=== PATIENT | female | born 1995 | race Hispanic/Latino ===

== ENCOUNTER 2024-11-27 02:10 | Inpatient (IN) | payer MEDICAID, SELFPAY ==
[2024-11-27] VITALS (51 sets, daily range): BP systolic 100–159; BP diastolic 61–140; PULSE 71–91; RESP 16–18; TEMP 36.4–36.9; O2SAT 96–99; BMI 33.5
--- OUTSIDE RECORDS SUMMARY | 2024-11-27 02:37 | XMS_ITS | Clinical Summary ---
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 Phone Unavailable Primary Care Provider Unavailabl e Social History Tobacco Use Types Packs/Day Years Used Date Smoking Tobacco: Never Assessed Intimate Partner Violence Answer Date R ecorded Feels physically and emotionally safe Not on abdulaziz e 05/01/2024 Fear of partner Not on file 05/01/2024 Housing Stability Answer Date Recorded Housing situation Not on file 05/01/2024 Worried about losing housing Not on file 05/2024 Comments Unknown Sex and Gender Information Value Date Recorded Sex Assigned at Not on file Legal Sex Female 1:59 PM EST Gender Identity Not on file Sexual Orientation Not on file Plan of Treatment Health Maintenance Due Date Last Done Comments HIV Screening 1996 MMR Vaccines (1 of 1 - Stand phuong series) 1997 Varicella Vaccines (1 of 2 - 13+ 2-dose series) 2009 Hepatitis B Screening 2014 Hepatitis C Screening 2014 Well Adult Exam (Age 18+ Linsey ual Physical) 2014 Hepatitis B Vaccines (1 of 3 - 19+ 3-dose series) 11/06/2015 DTaP/Tdap/Td Vaccines (2 - T d or Tdap) 12/17/2015 11/19/2015 Pap Smear 2017 COVID-19 Vaccine ( - 2023-2 5 season) 2024 Influenza Vaccine (Season Ended) 2025 Zoster Vaccines (1 of 2) 2046 HIB Vaccines Aged Out No longer eligi ble based on patient's age to complete this topic HPV Vaccines Aged Out No longer eligi ble based on patient's age to complete this topic Hepatitis A Vaccines Aged Out No long er eligible based on patient's age to complete this topic IPV Vaccines Aged Out No longer eligi ble based on patient's age to complete this topic Meningococcal B Vaccine Aged Out No l onger eligible based on patient's age to complete this topic Meningococcal Vaccine Aged Out No dominick alexandro eligible based on patient's age to complete this topic Pneumococcal Vaccine: 0-49 Years Aged Out No longer eligible based on patient's age to complete this topic Rotavirus Vaccines Aged Out No longer eligible based on patient's age to complete this topic
--- OUTSIDE RECORDS SUMMARY | 2024-11-27 02:37 | XMS_ITS | Continuity of Care Document ---
Author Organization [facility] Address [address] [place] [address] Phone Care Team Providers Care Behavior Clinician Name Role Phone Liv Jimenez Unavailable Unava ilable Allergies, Adverse Reactions, Alerts Substance Reaction Status Criticality No Known Allergies Active No Inform ation Medications Medication Instructions Dosage Effective Dates (start - stop) Status Comments Lantus Solostar U-100 Insulin 100 unit/mL (3 mL) subcutaneous pen inject by 29 units by subcutaneous route at bedtime nightly - Active Pen Needle 30 gauge x 5/16 use to inject insulin as prescribed - Active metformin 1,000 mg tablet take 1 tablet by oral route nightly - Active Lancets,Ultra Thin use to check blood sugar four times daily as instructed - Active ok to sub fo r any lancets covered by insurance Alcohol Prep Pads use to check blood sugar four times daily as instructed - Active OneTouch Verio Flex Meter use to check blood sugar four times a day as instructed - Active may sub any equivalent covered by insurance OneTouch Verio test strips use to check blood sugar four times a day as instructed - Active may substitute equivalent test strips for insurance coverage 28 mg iron-800 mcg tablet take 1 tablet by oral route every day - Active directions in [place] Procedures Procedure Date OFFICE OUTPT EST 25 MIN OB US >/= 14 Weeks, Single Fetus 2024 BIOPHYSICAL PROFILE; WITHOUT NON-S TRESS TESTING Alcohol and/or drug screening OFFICE OUTPT EST 25 MIN OFFICE OUTPT EST 25 MIN Alcohol and/or drug screening 5 OFFICE/OUTPATIENT VISIT, EST OFFICE/OUTPATIENT VISIT, EST OFFICE OUTPT EST 25 MIN Immun admin-adult or WO counseling - fir st vaccine/toxoid TDAP VACCINE 7 YR + IM OFFICE O/P EST 5 MIN Voided Encounter Voided Encounter Alcohol and/or drug screening 5 OFFICE/OUTPATIENT VISIT, EST Urinalysis, Auto, w/o Scope Alcohol and/or drug screening 5 OFFICE/OUTPATIENT VISIT, EST Alcohol and/or drug screening 5 OFFICE/OUTPATIENT VISIT, EST Alcohol and/or drug screening 4 Immun admin-adult or WO counseling-each add vaccine/toxoid aft 21992 INFLUENZA VACCINE IIV3 ADMIN SARSCOV2 VACC 1 DOSE SARSCOV2 VAC 30MCG TRSSUC IM HEMOGLOBIN; GLYCOSYLATED (A1C) Urinalysis, Auto, w/o Scope OFFICE/OUTPATIENT VISIT, NEW OB US < 14 Weeks, Single Fetus 24 [facility] Scrning perf and negative care, at-risk enhanced service; antepartum management OFFICE O/P EST 5 MIN OFFICE O/P EST 5 MIN URINE TEST, BY VISUAL COLOR CO MPARISON METHODS Advance Directives Directive Yes / No Effective Date File Name No Information Encounters Encounter Description Practice Location Reason(s) For Visit Diagnoses Date Provider Providers Copied on Encounter Matt Overtime Mediakristi girard [address], [place], [place], [address] , tel: [phone] [facility] No Information 5 Rajendra Thakkarannetta. [address], [place], [place], [address], . tel:[phone] OFFICE OUTPT EST 25 MIN [facility], [address], [place], [place], [address] , tel: [phone] [facility] routine (chief complaint) Supervision of other high risk , third trimesterGestatio nal diabetes in [id number] weeks gestation of pregnancyEncounte r for suprvsn of normal , first trimester 5 Sean Fernandez. [address], [place], [place], [address], . tel:[phone] Referring Provider: Rebecca Estrada, [address], [place], [address]. tel:[phone] [facility], [address], [place], [place], [address] , tel: [phone] [facility] No Information 5 Dheeraj Brock. [address], [place], [place], [address], . tel:[phone] OFFICE OUTPT EST 25 MIN [facility], [address], [place], [place], [address] , tel: [phone] [facility] routine (chief complaint) Supervision of other high risk , third trimesterGestatio nal diabetes in weeks gestation of 5 Sean Fernandez. [address], [place], [place], [address], . tel:[phone] OFFICE OUTPT EST 25 MIN [facility], [address], [place], [place], [address] , tel: [phone] [facility] routine (chief complaint) Supervision of other high risk , third trimesterGestatio nal diabetes in [id number] weeks gestation of 5 Sean Fernandez. [address], [place], [place], [address], [place]. tel:[phone] Referring Provider: Rebecca Estrada, [address], [place], [address]. tel:[phone] OFFICE/OUTPA TIENT VISIT, EST [facility], [address], [place], [place], [address] , [place] tel: [phone] [facility] routine (chief complaint) Supervision of other high risk , third trimesterGestatio nal diabetes in [id number] weeks gestation of 5 Sean Fernandez. [address], [place], [place], [address], [place]. tel:[phone] OFFICE/OUTPA TIENT VISIT, EST [facility], [address], [place], [place], [address] , tel: [phone] [facility] routine (chief complaint) Supervision of other high risk , third trimesterGestatio nal diabetes in [id number] weeks gestation of 5 Sean Fernandez. [address], [place], [place], [address], [place]. tel:[phone] Referring Provider: Rebecca Estrada, [address], [place], [address]. tel:[phone] OFFICE OUTPT EST 25 MIN [facility], [address], [place], [place], [address] , [place] tel: [phone] [facility] routine (chief complaint) Supervision of other high risk , third [id number] weeks gestation of pregnancyGestatio nal diabetes in pregnancyEncounte r for immunizationEncou nter for suprvsn of normal , first trimester 5 Sean Fernandez. [address], [place], [place], [address], [place]. tel:[phone] OFFICE O/P EST 5 MIN [facility], [address], [place], [place], [address] , [place] tel: [phone] [facility] Diabetic education (chief complaint) No Information 5 Nurse Registered. [address], [place], [place], [address], . tel:[phone] [facility], [address], [place], [place], [address] , [place] tel: [phone] [facility] diabetic education (chief complaint) No Information 0 5 Nurse Registered. [address], [place], [place], [address], [place]. tel:[phone] Consulting Provider: Mata Brannon [address], [place], [address]. tel:[phone] [facility], [address], [place], [place], [address] , [place] tel: [phone] [facility] No Information No Information OFFICE/OUTPA TIENT VISIT, EST [facility], [address], [place], [place], [address] , [place] tel: [phone] [facility] routine (chief complaint) Encounter for supervision of other normal , 2nd trimesterEncounte r for screening for diabetes [id number] weeks gestation of pregnancyEncounte r for suprvsn of normal , first trimesterEncounte r for test, result unknown No Information OFFICE/OUTPA TIENT VISIT, EST [facility], [address], [place], [place], [address] , [place] tel: [phone] [facility] routine (chief complaint) Encounter for supervision of other normal , 2nd knsnunqga87 weeks gestation of pregnancyEncounte r for other general counseling and advice on contraception No Information OFFICE/OUTPA TIENT VISIT, EST [facility], [address], [place], [place], [address] , [place] tel: [phone] [facility] routine (chief complaint) Encounter for supervision of other normal , 2nd weeks gestation of pregnancyOther underimmunization status No Information OFFICE/OUTPA TIENT VISIT, NEW [facility], [address], [place], [place], [address] , tel: [phone] [facility] iob (chief complaint) Encounter for suprvsn of normal , first [id number] weeks gestation of pregnancyEncounte r for other screening for genetic and chromosomal anomaliesEncounte r of female for testing for genetic disease carrier status for procreative managementEncount er for immunizationEncou nter for screening for malignant neoplasm of cervix 4 No Information [facility], [address], [place], [place], [address] , tel: [phone] [facility] No Information 4 Dheeraj Brock. [address], [place], [place], [address], . tel:[phone] [facility], [address], [place], [place], [address] , tel: [phone] [facility] routine (chief complaint) Encounter for suprvsn of normal , first [id number] weeks gestation of 4 Management Case. [address], [place], [place], [address], [place]. tel:[phone] Referring Provider: Delmy Eqsueda, [address], [place], [address]. tel:[phone] lting Provider: Boris Oro, [address], [place], [address]. tel:[phone] [facility], [address], [place], [place], [address] , tel: [phone] [facility] No Information 4 Management Case. [address], [place], [place], [address], [place]. tel:[phone] OFFICE O/P EST 5 MIN [facility], [address], [place], [place], [address] , tel: [phone] [facility] PT (chief complaint) Encounter for test, result positiveEncounter for test, result unknown 4 Nurse Registered. [address], [place], [place], [address], [place]. tel:[phone] Family History Family Member Type Diagnosis Age At Onset No Information Immunizations Vaccine Date Status Comments Boostrix (Tdap) administered Note: Pt sabrina erated well..IWilliams RMA ; Source: New Immunization Record FLULAVAL(VFC)/Fluzone(Privat e)/FLUARIX(317) administered Source: New Immuniza tion Record 12+ Pfizer administered Source: New Imm unization Record Payers Payer name Insurance type Covered alliance party ID Authoriza tion(s) [facility] [id number] Medicaid - Medical MC [id number] Social History Type Description Quantity Date Captured Comments Alcohol Use Details Unknown Caffeine Use Details Unknown Tobacco Use Status No Information Smoking Status No Information Sex Female Chief Complaint And Reason For Visit No Information Reason For Referral Reason For Referral No Information Plan Of Treatment Date Type Action Status Referral Referred To: [facility] O[facility] Ultrasounds [address] [place], [id number] Ordered: Referrals: Obstetrics/Cook Helper. [facility] O[facility] Ultrasounds. Diagnostic testing Appointment date/timeframe: 08/15/2024 ordered Appointment [facility] BOOKED Appointment [facility] BOOKED Appointment [facility] BOOKED Future Order: Radiology Order OB US >/= 14 Weeks, Single Fetus ([id number]), Ordered on: Ordered History Of Present Illness Encounter Date Complaint History Of Prese nt Illness routine routine routine routine routine routine Diabetic education Pt presented to the clinic for diabetic education after being dx with GDM for this .Gestational diabetes education provided to the patient to ensure optimal maternal and outcomes.Blood Glucose Monitoring: Educated the patient on the importance of regular blood glucose monitoring, including the recommended times for testing (fasting, postprandial). Patient was instructed on how to properly use the glucometer and record blood sugar levels.Dietary Recommendations: Provided patient with dietary guidelines, emphasizing a balanced diet with appropriate portion sizes, focusing on low glycemic index foods, and limiting simple sugars. Discussed the importance of regular meals and snacks to maintain stable blood glucose levels.Exercise Guidelines: Educated the patient on the importance of regular physical activity, such as walking or other low-impact exercises, for improving insulin sensitivity. Patient was advised to consult with her ADMIN ASSISTANT before starting any new exercise regimen.Symptom Management and Monitoring: Instructed the patient to monitor for signs of hyperglycemia (e.g., excessive thirst, frequent urination, fatigue) and hypoglycemia (e.g., shakiness, dizziness, confusion) and to report these symptoms promptly.Reviewed [facility] precautionsFollow-Up Appointments: Reminded the patient to attend regular visits.Plan:Continue monitoring blood glucose levels and adjust diet and exercise as needed.Review blood sugar logs at the next appointment.Provide additional educational materials on managing gestational diabetes, including a sample meal plan.Encourage patient to contact healthcare provider with any concerns or questions.Patient Understanding:Patient demonstrated understanding of the education provided and verbalized confidence in her ability to monitor blood glucose levels, follow dietary recommendations, and incorporate light exercise into her routine. Patient was encouraged to reach out for additional support as needed. diabetic education Pt presented to the clinic for diabetic education, w/o her supplies. Instructed pt to go to [facility] pharmacy to supervisor opening and picking supplies. Per pharmacist, they don't have any supplies because they are on backorder. Advised pt to go to [facility] to supervisor opening and picking supplies instead. Rescheduled pt for diabetic education at [facility] on 09/19 @ 11am. Instructed to bring supplies to appointment. 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 Takes daily PNV. Patient has some concerns about the cleaning products she uses at work. I reinforced to her to use gloves, goggles and a mask when needed to protect from fumes and contact. I also advised her to bring supporting documents to her IOB appointment. - Past Medical History: denies pertinent medical hx. - Substance Use- N/A- Diets :Pt has been eat well w/o concern. - Water Intake: adequate was intake. - Bladder: N/A - Bowels: constipation. - Exercise: 30 min of daily activity encouraged. - Sleep: sleep schedule is on and off. She has days she sleeps well and some not so well. she works over night. 8pm-5am - Mood: mood so/so, times where she does not eat or in the greatest mood. planned and FOB involved. - Work: works logger Patient referred to outreach, [facility] and encouraged to contact dental. See EHR and scanned documents for more information. class teaching reviewed as follows: anticipated course of care to increase chances of a healthy and good delivery outcomes, limitations in use of over the counter medications, hospital facilities, avoid drug, alcohol, tobacco use in and risk their use poses to fetus, exercising/physical activity in , dietary recommendations: increase fiber intake, food safety (wash fruits and vegetables, avoid raw meat, raw fish, undercooked eggs, and unpasteurized dairy), recommendations for 8-10 glasses of healthy fluids daily, nutrition and weight gain in , vitamins/iron daily, risk factors identified by history, s/s of miscarriage, seat belt use, physical activity, breast feeding, and PP family planning options. Pt v/u, denies questions. Chichi Oro RN, BSN. PT Pt presented to the clinic for a test. Test is positive. LMP 02/15/24. PLACIDO 11/21/24. 12 weeks. vitamins have been sent to [facility] pharmacy. Pt is aware that maternal child team will contact her to make her first three appointments. Functional Status Date Functional Assessmen t No Information Instructions Date Instruction Additional Infor leon Go to the hospital i f contractions every 10 min. Related to Encounter for supervision of other normal , 2nd trimester Go to the hospital i f you have any vaginal bleeding. Related to Encounter for supervision of other normal , 2nd trimester Go to the hospital i f you think your water breaks. Related to Encounter for supervision of other normal , 2nd trimester Go to the hospital i f contractions every 10 min. Related to Encounter for supervision of other normal , 2nd trimester Go to the hospital i f you have any vaginal bleeding. Related to Encounter for supervision of other normal , 2nd trimester Go to the hospital i f you think your water breaks. Related to Encounter for supervision of other normal , 2nd trimester Go to the hospital i f you have any abdominal cramping for more than 30 min. Related to Encounter for supervision of other normal , 2nd trimester Go to the hospital i f you have any vaginal bleeding. Related to Encounter for supervision of other normal , 2nd trimester Go to the hospital i f you think your water breaks. Related to Encounter for supervision of other normal , 2nd trimester Go to the hospital i f you have any abdominal cramping for more than 30 min. Related to Encounter for suprvsn of normal , first trimester Go to the hospital i f you have any vaginal bleeding. Related to Encounter for suprvsn of normal , first trimester Go to the hospital i f you think your water breaks. Related to Encounter for suprvsn of normal , first trimester Assessments Type Assessment Date No Information Patient Care Teams Name Effective Dates (start - stop) Status Members No Information
[2024-11-27 03:06] LABS: Glucose Point of Care 73 mg/dl (65-105)
[2024-11-27 03:46] LABS: Basophils Percent Auto 0.4 % (0.2-1.2); Eosinophils Absolute Auto 0.4 K/mm3 (0-0.3); Eosinophils Percent Auto 4.7 % (0-4.4); Hematocrit 38.3 % (37.0-47.0); Hemoglobin 13.3 g/dL (12.0-15.0); Immature Granulocyte Absolute 0.05 K/mm3 (0.00-0.031); Immature Granulocyte Percent A 0.6 % (0-0.5); Lymphocytes Absolute Auto 2.35 K/mm3 (0.9-3.2); Lymphocytes Percent Auto 26.3 % (18.3-44.2); Mean Corpuscular HGB Conc 34.7 g/dl (32-36); Mean Corpuscular Hemoglobin 31.8 pg (26-34); Mean Corpuscular Volume 91.6 fl (80-100); Mean Platelet Volume 10.2 fl (7.4-10.4); Monocytes Absolute Auto 0.5 K/mm3 (0.1-0.6); Monocytes Percent Auto 5.5 % (2.6-8.5); Neutrophils Absolute Auto 5.6 K/mm3 (1.3-6.7); Neutrophils Percent Auto 62.5 % (45.5-73.1); Platelet Count Result 249 k/mm3 (150-375); Red Blood Count 4.18 M/mm3 (4.2-5.4); White Blood Count 8.9 K/mm3 (4.5-10.0)
[2024-11-27] MEDS: AMPICILLIN 2 GM/NS 100 ML 2 GM/100 ML BAG IVPB (03:58)
[2024-11-27] MEDS: LACTATED RINGERS 1,000 ML 125 ML IV CONT (03:59)
[2024-11-27] MEDS: OXYTOCIN 30 UNITS/NS 500 ML 30 UNITS/500 ML BAG IV CONT (03:59)
[2024-11-27 04:23] LABS: Amphetamine Screen Urine Negative (Negative); Barbiturate Screen Urine Negative (Negative); Benzodiazepines Screen Urine Negative (Negative); Cannabinoid Screen Urine Negative (Negative); Cocaine Screen Urine Negative (Negative); Methadone Screen Urine Negative (Negative); Opiate Screen Urine Negative (Negative); Phencyclidine Screen Urine Negative (Negative)
[2024-11-27 04:25] LABS: Rubella IgG Antibody 5.8 IU/ML
[2024-11-27 04:26] LABS: Syphilis IgG/IgM Antibody Non-Reactive (Nonreactive)
[2024-11-27 04:29] LABS: Hepatitis B Surface Antigen Negative (Negative)
[2024-11-27 04:39] LABS: HIV 1/2 Ab P24 Ag Result Negative (Negative)
[2024-11-27 04:46] LABS: OBXCEM ROM Plus Positive (Negative)
--- NOTE | 2024-11-27 06:16 | P.HP_ITS ---
H&P: HPI History of Present Illness Date/Time: 11/27/24 06:16 Chief Complaint: spontaneous rupture of membranes gestational diabetes Narrative: 29-year-old at 37 weeks who presents with spontaneous rupture of membranes. Patient initially presented at [place]. She was transferred to [facility]. She reports leakage of fluid at 11:00 p.m. on 11/25/2024. She endorses good movement. Denies any fevers, chills. She does state the fluid had a greenish yellow color but that was clear. is also complicated by gestational diabetes. Patient is managed on insulin. Patient states she got her care in [facility]. Review of Systems Cardiovascular: Cardiovascular: Denies chest pain, Denies leg edema, Denies palpitations, Denies dyspnea and Denies dyspnea on exertion Respiratory: Respiratory: Denies cough, Denies dyspnea and Denies dyspnea on exertion Gastrointestinal: Gastrointestinal: Denies abdominal pain, Denies constipation, Denies diarrhea, Denies nausea and Denies vomiting Genitourinary: Genitourinary: Denies hematuria, Denies urinary frequency, Denies dysuria, Denies pelvic pain, Denies urinary incontinence and Denies vaginal discharge Neurologic: Reports system reviewed and no additional complaints, except as documented Psychiatric: Psychiatric: Reports no additional psychiatric complaints Endocrine: Endocrine: Denies palpitations PMFSH Social History Social History Smoking status: Never smoker Second hand tobacco smoke exposure: No Substance use: never Do You Feel Safe in your Home?: Yes Lack of Transportation: No Lack of Food: Never True Current Housing: I Have Housing Concerned About Future Housing: No Difficulty Paying Gas/Electric Bills: No Difficulty Paying for Meds: No Currently Unemployed: No Education: Don't Know Difficulty w/ Childcare or Family Care: No Spiritual care concerns: No Meds Home Medications and Allergies Home Medications ?Medication ?Instructions ?Recorded ?Confirmed ?Type insulin NPH isoph U-100 human 100 36 unit subcut HS 11/27/24 11/27/24 History unit/mL subcutaneous suspension (Novolin N NPH U-100 Insulin isophane) Allergies Allergy/AdvReac Type Severity Reaction Status Date / Time No Known Allergies Allergy Verified 11/27/24 04:01 Vital Signs Vital Signs - 24 hr 11/27/24 02:51 11/27/24 03:01 11/27/24 03:16 Pulse Rate 72 80 71 Blood Pressure 137/83 140/75 133/86 Oxygen Delivery 11/27/24 03:46 11/27/24 04:01 11/27/24 04:16 Pulse Rate 76 76 79 Blood Pressure 138/95 H 138/93 H 135/87 Oxygen Delivery 11/27/24 04:28 11/27/24 04:31 11/27/24 04:46 Pulse Rate 80 84 Blood Pressure 135/85 148/118 H Oxygen Delivery Room Air 11/27/24 05:01 11/27/24 05:16 11/27/24 05:31 Pulse Rate 72 75 74 Blood Pressure 130/75 131/74 133/81 Oxygen Delivery 11/27/24 05:46 11/27/24 06:01 11/27/24 06:16 Pulse Rate 89 78 75 Blood Pressure 141/92 H 131/87 134/92 H Oxygen Delivery Exam Const: General: no acute distress Eyes: EOM: EOMs intact bilaterally Neck: Neck: supple Thyroid: thyroid normal Chest: Breast/axilla inspection: normal inspection of the breasts Breast/axilla palpation: normal palpation of the breasts, normal palpation of the axillae and no axillary lymphadenopathy Resp: Effort & Inspection: normal respiratory effort Auscultation: clear to auscultation bilaterally Cardio: Rate: regular rate Rhythm: regular rhythm GI: Inspection: non-distended and other (Gravid) GI Palp: Yes Soft to palpation, No Tenderness to palpation present (GI) and No Guarding due to palpation present (GI) Auscultation: normal bowel sounds : Speculum Exam - Vagina: No vaginal bleeding OB/external & speculum: external exam normal; No vaginal bleeding Skin: General skin exam: normal color and no rashes or lesions noted Neuro: Cognition (Neuro): normal cognition Speech: normal speech Extrem: General: normal to inspection Psych: Mental Status: mental status grossly normal Affect: normal affect H&P: Results Labs Labs: Short CBC 11/27/24 Range/Units 03:24 WBC 8.9 (4.5-10.0) K/mm3 Hgb 13.3 (12.0-15.0) g/dL Hct 38.3 (37.0-47.0) % Plt Count 249 (150-375) k/mm3 Assessment and Plan Assessment and plan (1) Supervision of high risk , unspecified, third trimester: Code(s): O09.93 - Supervision of high risk , unspecified, third trimester Status: Acute Assessment and Plan: 29-year-old Patient states she received care in [place] Will request records Routine admission orders Continuous EFM (2) Gestational diabetes: Code(s): O24.419 - Gestational diabetes mellitus in , unspecified control Status: Acute Assessment and Plan: complicated by gestational diabetes on insulin Blood sugar 72 on admission Will monitor blood sugars through labor (3) Prolonged rupture of membranes: Code(s): O42.90 - Premature rupture of membranes, unspecified as to length of time betwee n rupture and onset of labor, unspecified weeks of gestation Status: Acute Assessment and Plan: Patient initially presented to [facility] and was transferred to [facility] Patient had an ultrasound at [facility] which showed oligohydramnios Patient reports leakage of fluid at 11:00 p.m. on 11/25 Afebrile, abdomen nontender WBC 8.9 on admission Prophylactic ampicillin administered Will augment with Pitocin
[2024-11-27] MEDS: AMPICILLIN 1 GM/NS 50 ML 1 GM/50 ML BAG IVPB (08:05)
[2024-11-27 08:15] LABS: Glucose Point of Care 86 mg/dl (65-105)
[2024-11-27 12:08] LABS: Glucose Point of Care 84 mg/dl (65-105)
--- NOTE | 2024-11-27 12:28 | PM.OBPRVD ---
OB - Vaginal Delivery Note Procedure Delivery date: 11/27/24 Induction method: None Delivery augmentation: Pitocin Delivery monitor: External FHT and External Uterine Route of delivery: Episiotomy description: None Laceration Description: None Specimen: No Quantitative Blood Loss (ml): 100 Anesthesia type: None Disposition: Floor Complications: No immediate complications Narrative: Patient pushed for a spontaneous vaginal delivery. The fetus was delivered atraumatically and placed on the maternal abdomen. The cord was clamped and cut after 1 minute of life. The cord was double clamped and cut and a segment of cord was collected for cord gases. Cord blood was collected for blood type and Coomb's testing. The placenta delivered spontaneously and was noted to be intact. The perineum was inspected and was noted to be intact. The uterus was firm and good hemostasis was noted. Baby Date of : 11/27/24 Time of : 12:22 Gestational Age by Date: 38 gender: Female presentation: vertex position: Right Occiput Anterior Placenta delivery description: Spontaneous Cord Vessel Description: 3 Vessels score one minute: 9 score five minutes: 9
[2024-11-27] MEDS: OXYTOCIN 30 UNITS/NS 500 ML 30 UNITS/500 ML BAG 125 UNITS IV CONT (13:05)
--- NOTE | 2024-11-27 13:23 | PM.OBDSVD ---
DS: Admitting Diagnosis Discharge Date 11/28/24 Admitting Diagnosis intrauterine at term spontaneous rupture of membranes gestational diabetes DS: Discharge Diagnosis Discharge Diagnosis (1) Normal vaginal delivery: Code(s): O80 - Encounter for full-term uncomplicated delivery Status: Acute OB - DS: Summary Hospital Course Hospital Course: 29 yo who presents at 37w after spontaneous rupture of membranes. Pt received her care in [place]. Her was complicated by gestational diabetes on insulin. She progressed to complete dilation and had an uncomplicated vaginal delivery. Her course was uncomplicated and she was d/c home on PPD #1. OB Procedures : None OB Procedures Intrapartum: Spontaneous Vag Delivery OB Procedures: : None Peripartum Data Laceration Description: None Episiotomy description: None Status at Discharge Functional status at discharge: independent ambulation Overall status at discharge: patient is back to baseline Time Spent with Patient Time attestation: Total time spent providing and/or coordinating discharge services: Time spent: Less than 30 minutes Exam Const: General: comfortable and no acute distress Resp: Effort & Inspection: normal respiratory effort Auscultation: clear to auscultation bilaterally Cardio: Rate: regular rate GI: GI Palp: Yes Soft to palpation Auscultation: normal bowel sounds Other: Fundus firm below umbilicus Psych: Appearance: grossly normal Mental Status: mental status grossly normal Affect: normal affect DS: Data Data Completed and Pending Labs on day of discharge: Labs from last 24 hours 11/27/24 11/27/24 11/27/24 12:04 08:05 04:28 WBC RBC Hgb Hct MCV MCH MCHC RDW Plt Count MPV Immature Gran % (Auto) Neut % (Auto) Lymph % (Auto) Arthur % (Auto) Eos % (Auto) Baso % (Auto) Lymph # (Auto) Arthur # (Auto) Eos # (Auto) Baso # (Auto) Abs Immat Gran (auto) Absolute Neuts (auto) Absolute Nucleated RBC Nucleated RBC % POC Capillary Glucose 84 86 Membranes Rupture Rom plus positive Urine Opiates Screen Urine Methadone Screen Ur Barbiturates Screen Ur Phencyclidine Scrn Ur Amphetamine Screen U Benzodiazepines Scrn Urine Cocaine Screen U Cannabinoids Screen Syphilis IgG/IgM Ab Hep Bs Antigen HIV 1&2 Ab/P24 Ag 4thGn Rubella IgG Antibody Blood Type Antibody Screen 11/27/24 11/27/24 11/27/24 03:25 03:24 03:03 WBC 8.9 RBC 4.18 L Hgb 13.3 Hct 38.3 MCV 91.6 MCH 31.8 MCHC 34.7 RDW 13.0 Plt Count 249 MPV 10.2 Immature Gran % (Auto) 0.6 H Neut % (Auto) 62.5 Lymph % (Auto) 26.3 Arthur % (Auto) 5.5 Eos % (Auto) 4.7 H Baso % (Auto) 0.4 Lymph # (Auto) 2.35 Arthur # (Auto) 0.5 Eos # (Auto) 0.4 H Baso # (Auto) 0.0 Abs Immat Gran (auto) 0.05 H Absolute Neuts (auto) 5.6 Absolute Nucleated RBC 0.000 Nucleated RBC % 0.0 POC Capillary Glucose 73 Membranes Rupture Urine Opiates Screen Negative Urine Methadone Screen Negative Ur Barbiturates Screen Negative Ur Phencyclidine Scrn Negative Ur Amphetamine Screen Negative U Benzodiazepines Scrn Negative Urine Cocaine Screen Negative U Cannabinoids Screen Negative Syphilis IgG/IgM Ab Non-reactive Hep Bs Antigen Negative HIV 1&2 Ab/P24 Ag 4thGn Negative Rubella IgG Antibody 5.8 L Blood Type O Positive Antibody Screen Negative Discharge Plan Discharge Discharging Clinician: Myke Romero Patient Disposition: Home Activity: as tolerated and pelvic rest Diet: regular Patient Instructions: Antibiotic Form, Vaginal Delivery (DC) Patient Language: Gabonese Stand Alone Forms: General Discharge Information Follow-up/Referrals: Myke Romero MD [Physician] - 4 Weeks Discharge Medications: New acetaminophen 500 mg tablet 500 mg PO Q6H PRN (Reason: pain) Qty: 30 0RF ibuprofen 600 mg tablet 600 mg PO Q6H PRN (Reason: pain) Qty: 30 0RF Discontinued Novolin N NPH U-100 Insulin 100 unit/mL suspension 36 unit subcut HS Date of admission: 11/27/24 02:10 Primary Care Provider: PHYSICIAN,[employer]ATOR [employer] Admitting Provider: Myke Romero Attending physician on admission: Myke Romero Condition: Stable
[2024-11-27] MEDS: IBUPROFEN 600 MG TABLET PO (14:04)
[2024-11-27] MEDS: WITCH HAZEL 40 PADS 1 PAD TOPICAL (14:04)
[2024-11-27] MEDS: BENZOCAINE 20% AER SPR (*SP) 56 GM CAN 1 SPRAY TOPICAL (14:04)
--- NOTE | 2024-11-27 15:07 | OBPPTRN ---
Patient transferred to post room #286 via wheelchair. Support person present. Oriented to unit, room, information board, rooming in, admission packet and security measures. Patient verbalizes understanding.
--- NOTE | 2024-11-27 17:06 | PC.NURSE ---
1700. Pat RN translated the conversation for us as mom is turkmen speaking. Introductions were made, then consulted with patient to assess needs related to . Discussed with mother her plans to feed her and the experience so far. Mom reports infant nursed for about 25 min after delivery. Mom i had gestational diabetes and took insulin during . Mom was asked if she needs a breast pump on discharge and she confirmed she does, she also replied yes to needing a WIC referral on discharge. Encouraged mother to express any questions or concerns she has regarding feedings. Advised her to call out for a latch check or if she needs assistance waking or positioning baby. Reviewed the blue feeding worksheet for required output and feeding at least 8-12 times every 24 hours. Resources provided for inpatient and outpatient services with the feeding sheet, mom/baby guide, and name/number written on the communication board. Mother voiced understanding of information and will call if there is a request for assistance. Reported to the Primary RN?
[2024-11-28] MEDS: IBUPROFEN 600 MG TABLET PO ×3 (03:40→16:18)
[2024-11-28] MEDS: ACETAMINOPHEN 325 MG TABLET 650 MG PO ×3 (03:40→16:18)
[2024-11-28 04:05] LABS: Hematocrit 36.5 % (37.0-47.0); Hemoglobin 12.4 g/dL (12.0-15.0)
[2024-11-28 07:45] VITALS: BP 118/81; PULSE 73; RESP 16; TEMP 36.1; O2SAT 100
[2024-11-28] MEDS: DOCUSATE SODIUM 100 MG CAPSULE PO ×2 (09:34→16:18)
[2024-11-28] MEDS: MULTIVIT/MIN/PREN/FOL AC/IRON TABLET 1 TAB PO (09:34)
--- NOTE | 2024-11-28 09:50 | PC.NURSE ---
[id number]. Consulted with patient to assess needs related to . Baby in level 2 nursery for high jaundice levels. under bili lights. Mom pumping every 3 hours at this time. Moms questions and concerns answered, reported to primary RN.
[2024-11-28 12:28] VITALS: BP 113/89; PULSE 60; RESP 16; TEMP 36.4; O2SAT 100
[2024-11-28] MEDS: TETANUS,DIPHTHERIA,AC PERTUSSIS ADULT (0.5 ML) BOOSTRIX IM (16:19)
[2024-11-28 19:34] VITALS: BP 119/79; PULSE 67; RESP 20; TEMP 36.6; O2SAT 99
[2024-11-29] MEDS: ACETAMINOPHEN 325 MG TABLET 650 MG PO ×3 (03:42→16:33)
[2024-11-29] MEDS: IBUPROFEN 600 MG TABLET PO ×3 (03:42→16:33)
--- NOTE | 2024-11-29 08:08 | PC.NURSE ---
Spoke to Sd in Case Management about this mother's needs for baby care supplies and children librarian assistance. Consult was entered in the computer.
[2024-11-29 08:30] VITALS: BP 126/96; PULSE 74; RESP 18; TEMP 36.4; O2SAT 100
[2024-11-29] MEDS: DOCUSATE SODIUM 100 MG CAPSULE PO ×2 (09:23→16:34)
[2024-11-29] MEDS: MULTIVIT/MIN/PREN/FOL AC/IRON TABLET 1 TAB PO (09:23)
[2024-11-29] MEDS: MEASLES,MUMPS,RUBELLA VACCINE 0.5 ML VIAL SUB-Q (09:25)
[2024-11-29 16:00] VITALS: BP 122/86
--- NOTE | 2024-11-30 13:15 | PCCCNOTE ---
Care Coordination Consult: Met with pt. and utilized translation device at bedside as pt. is primarily luxembourgish speaking. Pt. lives at home with her partner. This is her third child however other two reside in the [place] with other family. Pt. lives in the [place] area. Does not have any belongings for the baby. Was provided resources for , WIC, and children's literature professor information. Pt. was directly given the phone number for the [facility] office and asked to call to set up [place] services at discharge. Pt. has a breast pump in her room that she will be able to take home for use. Pt. reports she will primarily formula feed, additional formula to be provided to pt. at discharge. Pt. was provided a donation basket and additional items such as diapers, clothing, bottles, clothing etc. She was also provided a Pac N Play as she does not have a crib or bassinet at home.RN aware that pt. will require a car seat at discharge. Pt. reports she has transportation at discharge. Has support through friends that she works with and her partner/FOB. Pt. does not have family in this area. Reports she does not have a pet training instructor, she is aware that if she is agreeable Dr. De Souza can follow at discharge and she has a [place] office location. Pt. denies any other case management needs.
[2024-12-01 10:16] VITALS: BP 132/91; PULSE 86; RESP 20; TEMP 36.7; O2SAT 99
== END 2024-11-29 17:45 | disposition home or self-care (01) | DRG 560 ==
LOC: ANHLDR 13:26 → ANHOB2 15:10
PROVIDERS: Admitting Provider Student in an Organized Health Care Education/Training Program; Visit Provider Student in an Organized Health Care Education/Training Program
DX: O24.424 Gestational diabetes mellitus in childbirth, insulin controlled (principal); O77.0 Labor and delivery complicated by meconium in amniotic fluid; Z3A.37 37 weeks gestation of pregnancy; Z37.0 Single live birth
CPT/HCPCS: 36415; 80307; 82948; 84112; 85014; 85018; 85025; 86593; 86703; 86762; 86850; 86900; 86901; 87340; 90710; 90715; A9270; G0432; J0290; J2590; J7120